=== PATIENT | male | born 1960 | race Caucasian/White ===

== ENCOUNTER 2017-11-25 16:54 | Observation (INO) | payer BC ==
[~2017-11-25 16:54] MED LIST: ASPI81TA45 PO; BENA25MI PO; CENTTAB9 PO; GLUC1000 PO; LANTUS2P SC; LOPE2TAB3 PO; METO25CR PO; NITR0.4S SL; NOVOLOGP2 SQ; NYST100024 TOP; RIVA20 PO; [UNRECOGNIZED DRUG - SUPPLY] TOP
[2017-11-25 17:40] VITALS: BP 105/72; PULSE 105; RESP 20; TEMP 98.2; O2SAT 97
[2017-11-25 18:17] VITALS: BP_SYST 106; BP_SYST 135; BP_SYST 139; BP_DIAS 68; BP_DIAS 78; BP_DIAS 86; RESP 18
[2017-11-25 18:49] LABS: AUTOMATED NEUTROPHIL # 8.4 TH/MM3 (1.8-7.7); BASOPHIL # 0.1 TH/MM3 (0-0.2); BASOPHIL % 0.6 % (0.0-2.0); EOSINOPHIL # 0.7 TH/MM3 (0-0.4); EOSINOPHIL % 6.1 % (0.0-4.0); HEMATOCRIT 38.7 % (39.0-51.0); HEMOGLOBIN 14.1 GM/DL (13.0-17.0); LYMPH % 16.9 % (9.0-44.0); MEAN CELL VOLUME 90.2 FL (80.0-100.0); MEAN CORPUSCULAR HEMOGLOBIN 32.9 PG (27.0-34.0); MONO % 6.9 % (0.0-8.0); MONOCYTE # 0.8 TH/MM3 (0-0.9); NEUT % 69.5 % (16.0-70.0); PLATELET COUNT 169 TH/MM3 (150-450); RED CELL DISTRIBUTION WIDTH 12.4 % (11.6-17.2); WHITE BLOOD COUNT 12.1 TH/MM3 (4.0-11.0)
[2017-11-25 18:50] LABS: MEAN CORPUSCULAR HGB CONC 36.5 % (32.0-36.0)
[2017-11-25] MEDS ORDERED: ATOR40TA16 PO (19:09)
[2017-11-25] MEDS ORDERED: NOVOLOGP2 SQ (19:09)
[2017-11-25] MEDS ORDERED: INSU1.2I SQ (19:09)
[2017-11-25] MEDS ORDERED: METO50TA PO (19:09)
[2017-11-25] MEDS ORDERED: LISI40TA PO (19:09)
[2017-11-25] MEDS ORDERED: XARE20TA PO (19:09)
[2017-11-25] MEDS ORDERED: ESOM0.1C PO (19:09)
--- NOTE | 2017-11-25 19:10 | PD ---
HPI Chief Complaint: Syncope/Near-Syncope Time Seen by Provider: 18:51 Travel History International Travel<30 days: No Contact w/Intl Traveler<30days: No History of Present Illness HPI 56-year-old male brought in by EMS status post syncopal episode at his home earlier this afternoon. This was witnessed by his . Patient has cardiac history consisting of CAD with triple bypass in 2014 in [place]. Patient has history of hypertension and type 2 diabetes on insulin which he does not treat appropriately. Patient states he never checks his sugar he just takes with his doctor tells him. Patient states he doubled up on his metoprolol and lisinopril dose this morning as he felt his blood pressure was too high. The patient reports history of feeling pressure behind his eyes and in the anterior left neck over the past 2 weeks especially when he is exerting himself. The patient denies specific chest pain or shortness of breath. Patient states he was getting up talking to his , and asking if she had any patent potato's, when he passed out. His states he went to his knees and then onto the floor. She states he was passed out for approximately 1 minute. She denies seeing any seizure activity. He did not hit his head. He was breathing normally during this time. His got him up and checked his blood pressure and found to be 90/50. She dialed 911 at that time. Patient currently feels alert and oriented and without any symptoms at all at this time. He has no known drug allergies. PFSH Past Medical History Atrial Fibrillation: Yes Cardiovascular Problems: Yes High Cholesterol: Yes Diabetes: Yes Patient Takes Glucophage: No Diminished Hearing: Yes (DEAF L EAR) GERD: Yes Hypertension: Yes Influenza Vaccination: Yes Past Surgical History Appendectomy: Yes Coronary Artery Bypass Graft: Yes (X4) Ear Surgery: Yes (L EAR GRAFT ) Tonsillectomy: Yes (AND ADENOIDS) Social History Alcohol Use: Yes (1 P[place] 5X/WEEK) Tobacco Use: Yes (1/2 PACK WHEN DRINKING) Substance Use: Yes (MARIJUANA) Allergies-Medications (Allergen,Severity, Reaction): Coded Allergies: No Known Allergies (Unverified , 04/23/15) Reported Meds & Prescriptions Reported Meds & Active Scripts Active Reported Samuel Sam Pen Inj (Insulin Glargine) 300 Unit/Ml Pen 70 Units SQ HS Novolog Inj (Insulin Aspart) 1,000 Unit/10 Ml Vial 17 Units SQ TID Xarelto (Rivaroxaban) 20 Mg Tab 20 Mg PO DAILY Esomeprazole DR 20 Mg Capdr 20 Mg PO DAILY Lisinopril 40 Mg Tab 40 Mg PO DAILY Atorvastatin (Atorvastatin Calcium) 40 Mg Tab 40 Mg PO HS Metoprolol Tartrate 50 Mg Tab 50 Mg PO DAILY Review of Systems Except as stated in HPI: all other systems reviewed are Neg General / Constitutional: No: Fever Eyes: No: Visual changes HENT: No: Headaches Cardiovascular: No: Chest Pain or Discomfort Respiratory: No: Shortness of Breath Gastrointestinal: No: Abdominal Pain Genitourinary: No: Dysuria Musculoskeletal: No: Pain Skin: No Rash Neurologic: Positive: Syncope (see history present illness), No: Weakness Psychiatric: No: Depression Endocrine: No: Polydipsia Hematologic/Lymphatic: No: Easy Bruising Physical Exam Narrative GENERAL: Patient appears in no obvious distress. He is talkative and animated. SKIN: Warm and dry. Normal color. Normal turgor. No sign of trauma. HEAD: Atraumatic. Normocephalic. EYES: Pupils equal and round. No scleral icterus. No injection or drainage. ENT: No nasal bleeding or discharge. Mucous membranes pink and moist. Thanks is clear. Airway is patent. NECK: Trachea midline. No JVD. Supple nontender. CARDIOVASCULAR: Regular rate and rhythm. No murmurs gallops or rubs. RESPIRATORY: No accessory muscle use. Clear to auscultation. Breath sounds equal bilaterally. GASTROINTESTINAL: Abdomen soft, non-tender, nondistended. Hepatic and splenic margins not palpable. MUSCULOSKELETAL: Extremities without clubbing, cyanosis, or edema. No obvious deformities. NEUROLOGICAL: Awake and alert. No obvious cranial nerve deficits. Motor grossly within normal limits. Five out of 5 muscle strength in the arms and legs. Normal speech. PSYCHIATRIC: Appropriate mood and affect; insight and judgment normal. Data Data Last Documented VS Vital Signs Date Time Temp Pulse Resp B/P (MAP) Pulse Ox O2 Delivery O2 Flow Rate FiO2 11/25/17 19:24 104 18 121/65 (83) 97 Room Air 11/25/17 17:40 98.2 Orders Orders Electrocardiogram (11/25/17 17:27) Complete Blood Count With Diff (11/25/17 17:27) Basic Metabolic Panel (Bmp) (11/25/17 17:27) Ckmb (Isoenzyme) Profile (11/25/17 17:27) Troponin I (11/25/17 17:27) Iv Access Insert/Monitor (11/25/17 17:27) Ecg Monitoring (11/25/17 17:27) Magnesium (Mg) (11/25/17 19:11) Act Partial Throm Time (Ptt) (11/25/17 19:11) Prothrombin Time / Inr (Pt) (11/25/17 19:11) Urinalysis - C+S If Indicated (11/25/17 19:11) Blood Glucose (11/25/17 19:11) Oximetry (11/25/17 19:11) Ondansetron Inj (Zofran Inj) (11/25/17 19:15) Sodium Chloride 0.9% Flush (Ns Flush) (11/25/17 19:15) Sodium Chlor 0.9% 1000 Ml Inj (Ns 1000 M (11/25/17 19:11) Orthostatic Vital Signs (11/25/17 19:11) CKMB (11/25/17 18:30) CKMB% (11/25/17 18:30) Insulin Human Regular Inj (Novolin R Inj (11/25/17 20:00) Chest, Single Ap (11/25/17 20:16) Electrocardiogram (11/25/17 19:40) Admit Order (Ed Use Only) (11/25/17 21:16) Labs Laboratory Tests Test 11/25/17 18:30 11/25/17 19:10 White Blood Count 12.1 TH/MM3 Red Blood Count 4.30 MIL/MM3 Hemoglobin 14.1 GM/DL Hematocrit 38.7 % Mean Corpuscular Volume 90.2 FL Mean Corpuscular Hemoglobin 32.9 PG Mean Corpuscular Hemoglobin Concent 36.5 % Red Cell Distribution Width 12.4 % Platelet Count 169 TH/MM3 Mean Platelet Volume 10.0 FL Neutrophils (%) (Auto) 69.5 % Lymphocytes (%) (Auto) 16.9 % Monocytes (%) (Auto) 6.9 % Eosinophils (%) (Auto) 6.1 % Basophils (%) (Auto) 0.6 % Neutrophils # (Auto) 8.4 TH/MM3 Lymphocytes # (Auto) 2.0 TH/MM3 Monocytes # (Auto) 0.8 TH/MM3 Eosinophils # (Auto) 0.7 TH/MM3 Basophils # (Auto) 0.1 TH/MM3 CBC Comment AUTO DIFF Differential Comment AUTO DIFF CONFIRMED Blood Urea Nitrogen 45 MG/DL Creatinine 1.99 MG/DL Random Glucose 362 MG/DL Calcium Level 9.1 MG/DL Sodium Level 131 MEQ/L Potassium Level 4.5 MEQ/L Chloride Level 100 MEQ/L Carbon Dioxide Level 18.5 MEQ/L Anion Gap 13 MEQ/L Estimat Glomerular Filtration Rate 35 ML/MIN Magnesium Level 1.9 MG/DL Total Creatine Kinase 103 U/L Creatine Kinase MB 0.9 NG/ML Troponin I LESS THAN 0.02 NG/ML Prothrombin Time 10.8 SEC Prothromb Time International Ratio 1.1 RATIO Activated Partial Thromboplast Time 33.1 SEC Urine Color LIGHT-YELLOW Urine Turbidity CLEAR Urine pH 5.0 Urine Specific [place] 1.010 Urine Protein NEG mg/dL Urine Glucose (UA) 1000 mg/dL Urine Ketones NEG mg/dL Urine Occult Blood NEG Urine Nitrite NEG Urine Bilirubin NEG Urine Urobilinogen LESS THAN 2.0 MG/DL Urine Leukocyte Esterase NEG Urine RBC LESS THAN 1 /hpf Urine WBC LESS THAN 1 /hpf Urine Mucus FEW /lpf Microscopic Urinalysis Comment CULT NOT INDICATED MDM Medical Decision Making Medical Screen Exam Complete: Yes Emergency Medical Condition: Yes Medical Record Reviewed: Yes Differential Diagnosis Syncopal episode. Cardiac syndrome. Hyperglycemia. Hypoglycemia. Electrolyte imbalance. Dehydration. Narrative Course Patient appears medically stable at time of exam. Bedside blood sugar is EKG shows normal sinus rhythm without significant ST-T changes noted. Chest x-ray is ordered. CBC shows slight leukocytosis of 12.1. First troponin is less than 0.02. Rest of the chemistry shows a sodium 131, Lanoxin is 18.5. BUN is 45 with a creatinine of 1.99 with an estimated GFR of 35. Glucose is 362. Urinalysis is unremarkable except for urine glucose of thousand. Chest x-ray shows left-sided trace atelectasis versus scar tissue. Patient certainly warrants observation as I do not have a specific cause of his syncopal event, and cannot rule out cardiac event versus low blood sugar, versus other etiology. Call placed to the hospitalist for admission. Diagnosis Primary Impression: Syncope Qualified Codes: R55 - Syncope and collapse Additional Impressions: Type 2 diabetes mellitus Qualified Codes: E11.65 - Type 2 diabetes mellitus with hyperglycemia; Z79.4 - [facility] (current) use of insulin Elevated serum creatinine Hyponatremia Admitting Information Admitting Physician Requests: Observation Condition: Stable Angel Sales Nov 25, 2017 19:10
[2017-11-25] MEDS ORDERED: SODIUM CHLOR 0.9% 1000 ML INJ 1,000 ML IV ONE (19:11)
[2017-11-25] MEDS ORDERED: ONDANSETRON HCL 4 MG/2 ML VIAL IVP ONE (19:15)
[2017-11-25] MEDS ORDERED: SODIUM CHLORIDE 0.9% FLUSH 10 ML FLUSH IVF PRN (19:15)
[2017-11-25 19:24] VITALS: BP 121/65; PULSE 104; RESP 18; O2SAT 97
[2017-11-25 19:29] LABS: TROPONIN I LESS THAN 0.02 NG/ML (0.02-0.05)
[2017-11-25 19:32] LABS: BILIRUBIN, URINE NEG (NEG); BLOOD, URINE NEG (NEG); GLUCOSE,URINE 1000 mg/dL (NEG); KETONE, URINE NEG (NEG); MUCUS URINE FEW /lpf (OCC); NITRITE,URINE NEG (NEG); URINE COLOR LIGHT-YELLOW (YELLW/STRAW); URINE LEUKOCYTE ESTERASE NEG (NEG)
[2017-11-25 19:39] LABS: INTERNATIONAL NORMALIZED RATIO 1.1 RATIO; PROTHROMBIN TIME - PATIENT 10.8 SEC (9.8-11.6)
[2017-11-25 19:42] LABS: BICARBONATE 18.5 MEQ/L (21.0-32.0); BLOOD UREA NITROGEN 45 MG/DL (7-18); CALCIUM 9.1 MG/DL (8.5-10.1); CHLORIDE 100 MEQ/L (98-107); CREATININE 1.99 MG/DL (0.60-1.30); GLOMERULAR FILTRATION RATE 35 ML/MIN (>89); SODIUM (NA) 131 MEQ/L (136-145)
[2017-11-25 19:47] LABS: GLUCOSE,RANDOM 362 MG/DL (74-106)
--- NOTE | 2017-11-25 19:47 | PD ---
Physical Exam Narrative General: The patient is a well-developed well-nourished male in no acute disease. Head and Neck exam: Head is normocephalic atraumatic. Eyes: EOMI, pupils are equal round and reactive to light. Nose: Midline septum with pink mucous membranes Mouth: Dentition unremarkable. Moist mucus membranes. Posterior oropharynx is not erythematous. No tonsillar hypertrophy. Uvula midline. Airway patent. Neck: No palpable lymphadenopathy. No nuchal rigidity. No thyromegaly. Cardiovascular: Sinus tachycardia in the low 100s without murmurs, gallops, or rubs. No pulse deficit to the extremities on simultaneous auscultation and palpation of his radial artery. Lungs: Clear to auscultation bilaterally. No wheezes, rhonchi, or rales. Abdomen: Soft, without tenderness to palpation in all 4 quadrants of the abdomen. No guarding, rebound, or rigidity. Normal bowel sounds are audible. No tenderness on palpation of McBurney's point. Extremities: No clubbing, cyanosis, or edema. 2+ pulses in all 4 extremities. No calf tenderness on palpation. Back: No costovertebral angle tenderness to palpation. Neurologic Exam: Grossly nonfocal. Skin Exam: No rash noted. Intact skin that is warm and dry. Data Data Last Documented VS Vital Signs Date Time Temp Pulse Resp B/P (MAP) Pulse Ox O2 Delivery O2 Flow Rate FiO2 11/25/17 19:24 104 18 121/65 (83) 97 Room Air 11/25/17 17:40 98.2 Orders Orders Electrocardiogram (11/25/17 17:27) Complete Blood Count With Diff (11/25/17 17:27) Basic Metabolic Panel (Bmp) (11/25/17 17:27) Ckmb (Isoenzyme) Profile (11/25/17 17:27) Troponin I (11/25/17 17:27) Iv Access Insert/Monitor (11/25/17 17:27) Ecg Monitoring (11/25/17 17:27) Magnesium (Mg) (11/25/17 19:11) Act Partial Throm Time (Ptt) (11/25/17 19:11) Prothrombin Time / Inr (Pt) (11/25/17 19:11) Urinalysis - C+S If Indicated (11/25/17 19:11) Blood Glucose (11/25/17 19:11) Oximetry (11/25/17 19:11) Ondansetron Inj (Zofran Inj) (11/25/17 19:15) Sodium Chloride 0.9% Flush (Ns Flush) (11/25/17 19:15) Sodium Chlor 0.9% 1000 Ml Inj (Ns 1000 M (11/25/17 19:11) Orthostatic Vital Signs (11/25/17 19:11) CKMB (11/25/17 18:30) CKMB% (11/25/17 18:30) Insulin Human Regular Inj (Novolin R Inj (11/25/17 20:00) Chest, Single Ap (11/25/17 20:16) Electrocardiogram (11/25/17 19:40) Admit Order (Ed Use Only) (11/25/17 21:16) Labs Laboratory Tests Test 11/25/17 18:30 11/25/17 19:10 White Blood Count 12.1 TH/MM3 Red Blood Count 4.30 MIL/MM3 Hemoglobin 14.1 GM/DL Hematocrit 38.7 % Mean Corpuscular Volume 90.2 FL Mean Corpuscular Hemoglobin 32.9 PG Mean Corpuscular Hemoglobin Concent 36.5 % Red Cell Distribution Width 12.4 % Platelet Count 169 TH/MM3 Mean Platelet Volume 10.0 FL Neutrophils (%) (Auto) 69.5 % Lymphocytes (%) (Auto) 16.9 % Monocytes (%) (Auto) 6.9 % Eosinophils (%) (Auto) 6.1 % Basophils (%) (Auto) 0.6 % Neutrophils # (Auto) 8.4 TH/MM3 Lymphocytes # (Auto) 2.0 TH/MM3 Monocytes # (Auto) 0.8 TH/MM3 Eosinophils # (Auto) 0.7 TH/MM3 Basophils # (Auto) 0.1 TH/MM3 CBC Comment AUTO DIFF Differential Comment AUTO DIFF CONFIRMED Blood Urea Nitrogen 45 MG/DL Creatinine 1.99 MG/DL Random Glucose 362 MG/DL Calcium Level 9.1 MG/DL Sodium Level 131 MEQ/L Potassium Level 4.5 MEQ/L Chloride Level 100 MEQ/L Carbon Dioxide Level 18.5 MEQ/L Anion Gap 13 MEQ/L Estimat Glomerular Filtration Rate 35 ML/MIN Magnesium Level 1.9 MG/DL Total Creatine Kinase 103 U/L Creatine Kinase MB 0.9 NG/ML Troponin I LESS THAN 0.02 NG/ML Prothrombin Time 10.8 SEC Prothromb Time International Ratio 1.1 RATIO Activated Partial Thromboplast Time 33.1 SEC Urine Color LIGHT-YELLOW Urine Turbidity CLEAR Urine pH 5.0 Urine Specific [place] 1.010 Urine Protein NEG mg/dL Urine Glucose (UA) 1000 mg/dL Urine Ketones NEG mg/dL Urine Occult Blood NEG Urine Nitrite NEG Urine Bilirubin NEG Urine Urobilinogen LESS THAN 2.0 MG/DL Urine Leukocyte Esterase NEG Urine RBC LESS THAN 1 /hpf Urine WBC LESS THAN 1 /hpf Urine Mucus FEW /lpf Microscopic Urinalysis Comment CULT NOT INDICATED MDM Medical Record Reviewed: Yes Supervised Visit with TAMMIE: Yes Interpretation(s) Last Impressions Chest X-Ray 11/25/172015 Signed Impressions: Service Date/Time: Saturday, November 25, 2017 20:31 - CONCLUSION: Trace left base atelectasis and/or scarring. Otherwise negative. Khris Longoria MD Narrative Course I, Dr. Plaza, have reviewed the advance practice practitioner's documentation and am in agreement, met with the patient face to face, made the diagnosis, and the medical decision making was done by me. The patient was initially evaluated by Angel. Please see their complete history and physical. *My assessment and Findings: The patient presents with reported history of syncopal event that occurred earlier today. The patient reports that he has had lightheaded sensation for the last few weeks. The patient has a prior history of hypertension, tobacco use, coronary artery disease with quadruple bypass 3 years ago. He cannot recall when he last had a stress test done. He denies having a primary care physician. He reports that his occup therapist is Dr. Villalpando in [place]. During the course of the patients emergency department visit, the patients history, examination, and differential diagnosis were reviewed with the patient. The patient was placed on a rv service technician with oximetry and frequent blood pressure monitoring. The patient had IV access obtained and blood work sent for analysis. The patient had an EKG done on arrival that shows a sinus tachycardia rate of 100, nonspecific T-wave abnormalities, QRS duration is 101 ms, QTC [address] segment elevation is noted. The patient was initially provided normal saline 1 L IV fluid bolus, Zofran 4 mg IV. The patients laboratory studies were reviewed and remarkable for a white count of 12.1, hemoglobin 14.1, platelets 169 with 6.1 eosinophils, BMP is remarkable for a sodium of 131, CO2 18.5, BUN 45, creatinine 1.99, glucose 362 cardiac enzymes within normal limits, PT 10.8, PTT 33.1, urinalysis unremarkable, chest x-ray shows trace left base atelectasis and or scarring, otherwise unremarkable. The patients results were discussed with the patient, including the plan of care. I explained that further testing and/ or monitoring is indicated based on the patients history, examination, and/ or laboratory findings. Therefore, I recommended admission for additional evaluation. The patient expressed understanding and was agreeable with this plan. The patient was admitted to the hospital in stable condition and [facility] Diagnosis Primary Impression: Syncope Qualified Codes: R55 - Syncope and collapse Admitting Information Admitting Physician Requests: Observation Scripts Lisinopril (Lisinopril) 20 Mg Tab 20 MG PO DAILY, #30 TAB 0 Refills Prov: Maximino Wilson DO 11/26/17 Metoprolol Tartrate (Metoprolol Tartrate) 25 Mg Tab 25 MG PO BID for Afib, #60 TAB 0 Refills Prov: Maximino Wilson DO 11/26/17 Thiamine HCl (Gnp Vitamin B-1) 100 Mg Tab 100 MG PO DAILY for Vitamins, #30 TAB Prov: Maximino Wilson DO 11/26/17 Folic Acid (Folic Acid) 1 Mg Tablet 1 MG PO DAILY for Vitamins, #30 TAB Prov: Maximino Wilson DO 11/26/17 Condition: Stable Diana Plaza MD Nov 25, 2017 19:47
[2017-11-25] MEDS ORDERED: INSULIN HUMAN REGULAR 1,000 UNITS/10 ML VIAL IV PUSH ONE (20:00)
--- NOTE | 2017-11-25 20:45 | RADRPT ---
EXAM DATE/TIME: 11/25/2017 20:31 [facility] COMPARISON: No previous studies available for comparison. INDICATIONS : Syncope MEDICAL HISTORY : Cardiovascular disease. Hypertension SURGICAL HISTORY : CABG. ENCOUNTER: Initial ACUITY: 2 weeks PAIN SCORE: 0/10 LOCATION: chest FINDINGS: Minimal left base atelectasis versus scarring. Lungs are otherwise clear. No pleural effusion seen. N o pneumothorax. Normal heart size. Patient has had previous median sternotomy and CABG. CONCLUSION: Trace left base atelectasis and/or scarring. Otherwise negative. Khris Longoria MD on November 25, 2017 at 20:41 Board Certified Radiologist. This report was verified electronically.
[2017-11-25] MEDS ORDERED: ACETAMINOPHEN/HYDROcodone 325 MG/5 MG TAB PO PRN (21:30)
[2017-11-25] MEDS ORDERED: SENNOSIDES 8.6 MG TAB PO PRN (21:30)
[2017-11-25] MEDS ORDERED: SODIUM CHLORIDE 0.9% FLUSH 10 ML FLUSH IV FLUSH PRN (21:30)
[2017-11-25] MEDS ORDERED: ONDANSETRON HCL 4 MG/2 ML VIAL IVP PRN (21:30)
[2017-11-25] MEDS ORDERED: BISACODYL 10 MG SUPP RECTAL PRN (21:30)
[2017-11-25] MEDS ORDERED: ACETAMINOPHEN 325 MG TAB PO PRN (21:30)
[2017-11-25] MEDS ORDERED: LACTULOSE SYRUP 20 GM/30 ML CUP PO PRN (21:30)
[2017-11-25] MEDS ORDERED: ACETAMINOPHEN/HYDROcodone 325 MG/10 MG TAB PO PRN (21:30)
[2017-11-25] MEDS ORDERED: MAGNESIUM HYDROXIDE SUSP 30 ML CUP PO PRN (21:30)
--- NOTE | 2017-11-25 21:37 | HHI.HP ---
[facility] Primary Care Physician No Primary Care Physician Admission Diagnosis Syncope Diagnoses: (1) Syncope Diagnosis: Principal (2) Renal insufficiency Diagnosis: Principal (3) HTN (hypertension) Diagnosis: Principal (4) A-fib Diagnosis: Principal (5) Leukocytosis Diagnosis: Principal (6) DM (diabetes mellitus) Diagnosis: Principal (7) Tobacco abuse Diagnosis: Principal Travel History International Travel<30 Days: No Contact w/Intl Traveler <30 Da: No History of Present Illness This is a 56-year-old male with a PMH of HTN, Hyperlipidemia, A. fib on Xarelto , DM and Tobacco Abuse who was brought to the ER by EMS after syncopal event. Per patient he had sudden syncopal event at home, witnessed by . No head trauma. States he took a double dose of Metoprolol and Lisinopril earlier today bc he felt his BP was high. took BP after syncopal event and noted to be 90/50. No recent fever, chills, cough or chest pain. On arrival, BP 105/ 72, HR 105, O2 sat 97% on RA, Afebrile. WBC 12.1. BUN 45, creatinine 1.99, no previous labs for comparison. BS 362. Troponin negative. INR 1.1. CXR trace left base atelectasis, otherwise negative. Review of Systems Except as stated in HPI: all other systems reviewed are Neg ROS: 14 point review of systems otherwise negative. Past Family Social History Past Medical History PMH: HTN, Hyperlipidemia, A. fib on Xarelto, DM and Tobacco Abuse Past Surgical History PAST SURGICAL HISTORY: Tonsillectomy, Appendectomy, CABG Allergies: Coded Allergies: No Known Allergies (Unverified Allergy, Unknown, 11/25/17) Family History PAST FAMILY HISTORY: Reviewed, positive for CAD and DM. Social History PAST SOCIAL HISTORY: Drinks 1 pint of vodka 5 times a week. Smokes 1/2ppd. Positive for Marijuana. Physical Exam Vital Signs Vital Signs Date Time Temp Pulse Resp B/P (MAP) Pulse Ox O2 Delivery O2 Flow Rate FiO2 11/25/17 19:24 104 18 121/65 (83) 97 Room Air 11/25/17 18:17 106 18 135/86 (102) 106 18 106/68 (81) 116 18 139/78 (98) 11/25/17 17:40 98.2 105 20 105/72 (83) 97 Physical Exam PE: GENERAL: Pleasant middle-aged white male in no acute distress. at bedside. HEENT: PERRLA, EOMI. No scleral icterus or conjunctival pallor. No lid lag or facial droop. CARDIOVASCULAR: Regular rate and rhythm. No obvious murmurs to auscultation. No chest tenderness to palpation. RESPIRATORY: No obvious rhonchi or wheezing. Clear to auscultation. Breath sounds equal bilaterally. GASTROINTESTINAL: Abdomen soft, non-tender, nondistended. BS normal. MUSCULOSKELETAL: Extremities without clubbing, cyanosis, or edema. No obvious deformities. NEUROLOGICAL: Awake, alert and oriented x4. No focal neurologic deficits. Moving both upper and lower extremities spontaneously. Laboratory Laboratory Tests Test 11/25/17 18:30 11/25/17 19:10 White Blood Count 12.1 Red Blood Count 4.30 Hemoglobin 14.1 Hematocrit 38.7 Mean Corpuscular Volume 90.2 Mean Corpuscular Hemoglobin 32.9 Mean Corpuscular Hemoglobin Concent 36.5 Red Cell Distribution Width 12.4 Platelet Count 169 Mean Platelet Volume 10.0 Neutrophils (%) (Auto) 69.5 Lymphocytes (%) (Auto) 16.9 Monocytes (%) (Auto) 6.9 Eosinophils (%) (Auto) 6.1 Basophils (%) (Auto) 0.6 Neutrophils # (Auto) 8.4 Lymphocytes # (Auto) 2.0 Monocytes # (Auto) 0.8 Eosinophils # (Auto) 0.7 Basophils # (Auto) 0.1 CBC Comment AUTO DIFF Differential Comment AUTO DIFF CONFIRMED Blood Urea Nitrogen 45 Creatinine 1.99 Random Glucose 362 Calcium Level 9.1 Sodium Level 131 Potassium Level 4.5 Chloride Level 100 Carbon Dioxide Level 18.5 Anion Gap 13 Estimat Glomerular Filtration Rate 35 Magnesium Level 1.9 Total Creatine Kinase 103 Creatine Kinase MB 0.9 Troponin I LESS THAN 0.02 Prothrombin Time 10.8 Prothromb Time International Ratio 1.1 Activated Partial Thromboplast Time 33.1 Urine Color LIGHT-YELLOW Urine Turbidity CLEAR Urine pH 5.0 Urine Specific Parlin 1.010 Urine Protein NEG Urine Glucose (UA) 1000 Urine Ketones NEG Urine Occult Blood NEG Urine Nitrite NEG Urine Bilirubin NEG Urine Urobilinogen LESS THAN 2.0 Urine Leukocyte Esterase NEG Urine RBC LESS THAN 1 Urine WBC LESS THAN 1 Urine Mucus FEW Microscopic Urinalysis Comment CULT NOT INDICATED Result Diagram: 11/25/17182911/25/171829 Caprini VTE Risk Assessment Caprini VTE Risk Assessment: No/Low Risk (score <= 1) Caprini Risk Assessment Model Point Value = 1 Point Value = 2 Point Value = 3 Point Value = 5 Age 41-60 Minor surgery BMI > 25 kg/m2 Swollen legs Varicose veins or History of unexplained or recurrent spontaneous Oral contraceptives or hormone replacement Sepsis (< 1 month) Serious lung disease, including pneumonia (< 1 month) Abnormal pulmonary function Acute myocardial infarction Congestive heart failure (< 1 month) History of inflammatory bowel disease Medical patient at bed rest Age 61-74 Arthroscopic surgery Major open surgery (> 45 min) Laparoscopic surgery (> 45 min) Malignancy Confined to bed (> 72 hours) Immobilizing plaster cast Central venous access Age >= 75 History of VTE Family history of VTE Factor V Leiden Prothrombin [id number] Lupus anticoagulant Anticardiolipin antibodies Elevated serum homocysteine Heparin-induced thrombocytopenia Other congenital or acquired thrombophilia Stroke (< 1 month) Elective arthroplasty Hip, pelvis, or leg fracture Acute spinal cord injury (< 1 month) Prophylaxis Regimen Total Risk Factor Score Risk Level Prophylaxis Regimen 0-1 Low Early ambulation 2 Moderate Order ONE of the following: *Sequential Compression Device (SCD) *Heparin 5000 units SQ BID 3-4 Higher Order ONE of the following medications: *Heparin 5000 units SQ TID *Enoxaparin/Lovenox 40 mg SQ daily (WT < 150 kg, CrCl > 30 mL/min) *Enoxaparin/Lovenox 30 mg SQ daily (WT < 150 kg, CrCl > 10-29 mL/min) *Enoxaparin/Lovenox 30 mg SQ BID (WT < 150 kg, CrCl > 30 mL/min) AND/OR *Sequential Compression Device (SCD) 5 or more Highest Order ONE of the following medications: *Heparin 5000 units SQ TID (Preferred with Epidurals) *Enoxaparin/Lovenox 40 mg SQ daily (WT < 150 kg, CrCl > 30 mL/min) *Enoxaparin/Lovenox 30 mg SQ daily (WT < 150 kg, CrCl > 10-29 mL/min) *Enoxaparin/Lovenox 30 mg SQ BID (WT < 150 kg, CrCl > 30 mL/min) AND *Sequential Compression Device (SCD) Assessment and Plan Problem List: (1) Syncope ICD Code: R55 - Syncope and collapse Status: Acute (2) Renal insufficiency ICD Code: N28.9 - Disorder of kidney and ureter, unspecified (3) Leukocytosis ICD Code: D72.829 - Elevated white blood cell count, unspecified (4) HTN (hypertension) ICD Code: I10 - Essential (primary) hypertension (5) A-fib ICD Code: I48.91 - Unspecified atrial fibrillation (6) DM (diabetes mellitus) ICD Code: E11.9 - Type 2 diabetes mellitus without complications (7) Tobacco abuse ICD Code: Z72.0 - Tobacco abuse Status: Acute Assessment and Plan A/P: 1. Syncope: acute syncopal event after standing, likely vasovagal, compounded by antihypertensive medications as took double dose of normal regimen. Admit for Observation, place on telemetry. Initial trop negative, check serial cardiac enzymes to eval for possible underlying ischemia. Check Echo to eval for valvular abnormalities/cardiomyopathy. 2. Renal Insufficiency: Creatinine 1.99, no previous labs for comparison. U/ a negative. Start IVF, hold Lisinopril in light of renal insufficiency. Repeat labs in am. 3. Leukocytosis: WBC 12, afebrile. Likely secondary to fall/syncope, no obvious infection. U/a negative, CXR w/ no acute findings, images reviewed by me. Repeat labs in am for trend. 4. HTN: On Metoprolol/Lisinopril at home, took double dose today for elevated BP at home, BP low 100's, will hold antihypertensives for now, monitor BP closely. 5. DM: Sliding scale w/ Accu-Cheks. Resume home Insulin. 6. Tobacco Abuse: Pt counselled. Ativan prn if needed. 7. A-fib: Chronic. Resume home Xarelto. Hold Metoprolol secondary to above, resume when BP stabilized. 8. DVT Prophylaxis: Xarelto 9. Social work for DC planning as needed. 10. Case discussed at length with ER physician, lab/records/imaging reviewed by me. Problem Qualifiers (1) Syncope: Qualified Codes: R55 - Syncope and collapse Mehnaz Pradhan MD Nov 25, 2017 21:37
[2017-11-25 21:48] VITALS: BP 128/76
[2017-11-25] MEDS: SODIUM CHLOR 0.9% 1000 ML INJ 1,000 ML IV SCH (21:48)
[2017-11-26 00:05] VITALS: BP 108/64; PULSE 101; RESP 20; TEMP 97.3; O2SAT 96
[2017-11-26] MEDS ORDERED: LORazepam 2 MG TAB PO PRN (00:15)
[2017-11-26] MEDS ORDERED: FLUMAZENIL 0.5 MG/5 ML VIAL IV PUSH PRN (00:15)
[2017-11-26] MEDS ORDERED: LORazepam 2 MG/ML VIAL IV PUSH PRN ×4 (00:15)
[2017-11-26] MEDS ORDERED: LORazepam 1 MG TAB PO PRN (00:15)
[2017-11-26] MEDS ORDERED: HALOPERIDOL LACTATE 5 MG/ML AMP IM PRN (00:15)
[2017-11-26 02:44] LABS: AUTOMATED NEUTROPHIL # 4.4 TH/MM3 (1.8-7.7); BASOPHIL # 0.1 TH/MM3 (0-0.2); BASOPHIL % 1.1 % (0.0-2.0); EOSINOPHIL # 0.6 TH/MM3 (0-0.4); EOSINOPHIL % 7.4 % (0.0-4.0); HEMATOCRIT 35.1 % (39.0-51.0); HEMOGLOBIN 12.2 GM/DL (13.0-17.0); LYMPHOCYTE # 1.8 TH/MM3 (1.0-4.8); MEAN CELL VOLUME 91.3 FL (80.0-100.0); MEAN CORPUSCULAR HEMOGLOBIN 31.8 PG (27.0-34.0); MEAN CORPUSCULAR HGB CONC 34.8 % (32.0-36.0); MEAN PLATELET VOLUME 10.3 FL (7.0-11.0); MONO % 11.9 % (0.0-8.0); MONOCYTE # 0.9 TH/MM3 (0-0.9); NEUT % 56.6 % (16.0-70.0); PLATELET COUNT 113 TH/MM3 (150-450); RED BLOOD COUNT 3.84 MIL/MM3 (4.50-5.90); RED CELL DISTRIBUTION WIDTH 12.4 % (11.6-17.2); WHITE BLOOD COUNT 7.8 TH/MM3 (4.0-11.0)
[2017-11-26 03:21] LABS: ALBUMIN 3.3 GM/DL (3.4-5.0); ALKALINE PHOSPHATASE 64 U/L (45-117); ALT (GPT) 46 U/L (12-78); AST (GOT) 33 U/L (15-37); BICARBONATE 24.7 MEQ/L (21.0-32.0); BLOOD UREA NITROGEN 37 MG/DL (7-18); CALCIUM 8.1 MG/DL (8.5-10.1); CHLORIDE 104 MEQ/L (98-107); CREATININE 1.69 MG/DL (0.60-1.30); GLOMERULAR FILTRATION RATE 42 ML/MIN (>89); SODIUM (NA) 136 MEQ/L (136-145); TOTAL BILIRUBIN ADULT 0.3 MG/DL (0.2-1.0); TOTAL PROTEIN 6.9 GM/DL (6.4-8.2); TROPONIN I LESS THAN 0.02 NG/ML (0.02-0.05)
[2017-11-26 03:30] LABS: GLUCOSE,RANDOM 465 MG/DL (74-106)
[2017-11-26 03:51] VITALS: BP 132/71; PULSE 90; RESP 18; TEMP 97.5; O2SAT 97
[2017-11-26 04:00] VITALS: PULSE 90
[2017-11-26] MEDS ORDERED: DEXTROSE 50% IN WATER 50 ML VIAL(D50) IV PUSH PRN (04:00)
[2017-11-26] MEDS ORDERED: GLUCAGON 1 MG/ML VIAL OTHER PRN (04:00)
[2017-11-26] MEDS ORDERED: INSULIN ASPART 1,000 UNITS/10 ML VIAL SQ ONE (04:15)
[2017-11-26] MEDS: SODIUM CHLOR 0.9% 1000 ML INJ 1,000 ML IV SCH (06:59)
[2017-11-26] MEDS: INSULIN ASPART SUPPLEMENTAL SCALE SQ SCH ×2 (08:00→12:00)
[2017-11-26 08:31] VITALS: BP 158/89; PULSE 92; RESP 21; TEMP 98.2; O2SAT 95
[2017-11-26] MEDS ORDERED: FOLIC ACID 1 MG TAB PO SCH (09:00)
[2017-11-26] MEDS ORDERED: THIAMINE HCL 100 MG TAB PO SCH (09:00)
[2017-11-26] MEDS ORDERED: SODIUM CHLORIDE 0.9% FLUSH 10 ML FLUSH IV FLUSH SCH (09:00)
[2017-11-26] MEDS ORDERED: MULTIVITAMINS/MINERALS THERAPEUTIC TAB PO SCH (09:00)
[2017-11-26] MEDS ORDERED: DOCUSATE SODIUM 50 MG/SENNA 8.6 MG TAB PO SCH (09:00)
[2017-11-26] MEDS ORDERED: RIVAROXABAN 20 MG TAB PO SCH (09:00)
[2017-11-26] MEDS ORDERED: NEXI20CA PO (09:30)
[2017-11-26] MEDS ORDERED: PNEUMOCOCCAL POLYVALENT INJ 25 MCG/0.5 ML SYR IM ONE (10:00)
[2017-11-26 12:08] VITALS: BP 148/87; PULSE 102; RESP 21; TEMP 97.4; O2SAT 96
[2017-11-26] MEDS ORDERED: METO25TA3 PO (12:15)
[2017-11-26] MEDS ORDERED: FOLI1TAB6 PO (12:15)
[2017-11-26] MEDS ORDERED: THIA100 PO (12:15)
[2017-11-26] MEDS ORDERED: LISI-515 PO (12:15)
--- NOTE | 2017-11-26 18:50 | HHI.PR ---
Subjective Remarks Follow up for syncopal episode. Patient is currently doing well. Ambulating without any difficulties. No fever, chills. Objective Vitals Vital Signs Date Time Temp Pulse Resp B/P (MAP) Pulse Ox O2 Delivery O2 Flow Rate FiO2 11/26/17 12:08 97.4 102 21 148/87 (107) 96 11/26/17 08:31 98.2 92 21 158/89 (112) 95 11/26/17 04:00 90 11/26/17 03:51 97.5 90 18 132/71 (91) 97 11/26/17 00:05 97.3 101 20 108/64 (79) 96 11/25/17 21:48 100 16 128/76 (93) 97 11/25/17 19:24 104 18 121/65 (83) 97 Room Air I/O 11/25/17 11/25/17 11/25/17 11/26/17 11/26/17 11/26/17 07:00 15:00 23:00 07:00 15:00 23:00 Intake Total 1000 ml 480 ml Output Total 1200 ml Balance 1000 ml -720 ml Intake Oral 480 ml IV Total 1000 ml Output Urine Total 1200 ml Result Diagram: 11/26/17 0230 11/26/17 0230 Imaging Last Impressions Chest X-Ray 11/25/172015 Signed Impressions: Service Date/Time: Saturday, November 25, 2017 20:31 - CONCLUSION: Trace left base atelectasis and/or scarring. Otherwise negative. Khris Longoria MD Objective Remarks GENERAL: Alert, Oriented x 3, NAD. SKIN: Warm and dry. HEAD: Normocephalic. EYES: No scleral icterus. No injection or drainage. NECK: Supple, trachea midline. No JVD or lymphadenopathy. CARDIOVASCULAR: Regular rate and rhythm without murmurs, gallops, or rubs. RESPIRATORY: Breath sounds equal bilaterally. No accessory muscle use. GASTROINTESTINAL: Abdomen soft, non-tender, nondistended. MUSCULOSKELETAL: No cyanosis, or edema. BACK: Nontender without obvious deformity. No CVA tenderness. Procedures None. A/P Problem List: (1) Syncope ICD Code: R55 - Syncope and collapse Status: Acute (2) Renal insufficiency ICD Code: N28.9 - Disorder of kidney and ureter, unspecified (3) Leukocytosis ICD Code: D72.829 - Elevated white blood cell count, unspecified (4) HTN (hypertension) ICD Code: I10 - Essential (primary) hypertension (5) A-fib ICD Code: I48.91 - Unspecified atrial fibrillation (6) DM (diabetes mellitus) ICD Code: E11.9 - Type 2 diabetes mellitus without complications (7) Tobacco abuse ICD Code: Z72.0 - Tobacco abuse Status: Acute Assessment and Plan This is a 56-year-old male with a PMH of HTN, Hyperlipidemia, A. fib on Xarelto , DM and Tobacco Abuse who was brought to the ER by EMS after syncopal event. Patient took double dose of metoprolol (total 100mg) and lisinopril 40mg because he felt his BP was high. He was talking to his and had a sudden syncope. His BP dropped to 70s systolic. - Syncope - Likely due to metoprolol and Lisinopril. - Patient is currently asymptomatic. - Hypertension - Meds were held on admission. His BP is again going upward. Systolic 158 today. - I advised patient to cut Lisinopril to half (20mg Qday). Titration can be done with consultation with his PCP. - Also reduce Metoprolol 50mg BID to Metoprolol 25mg BID. - Diabetes mellitus - Patient's diabetes is not well controlled. It should ideally be done with coordination with his PCP or Financial Reporting Manager. - Patient's also states that patient is not very compliant with checking his BG or eating appropriately. - I encouraged patient and his to follow up with PCP and possibly grip assembler to fine tune his DM meds. - Afib - Continue Metoprolol 25mg BID, Xarelto. Follow up with School Curriculum Developer ( Dr. Villalpando). Full code. Xarelto. Discharge patient to home Condition on discharge: Improved Heart healthy, Diabetic Diet as tolerated Ad Bel activity Rx written: - Lisinopril 20mg Qday - Metoprolol 25mg BID Follow-up with primary care physician in one week and Cardiology within 1 week. Echo in one week at patient's dietetic aide's office. Problem Qualifiers (1) Syncope: Qualified Codes: R55 - Syncope and collapse (2) A-fib: Qualified Codes: I48.2 - Chronic atrial fibrillation Maximino Wilson DO Nov 26, 2017 18:50
--- NOTE | 2017-11-26 19:48 | EKG ---
Date Performed: 11/25/2017 Time Performed: 17:33:01 PTAGE: 56 years EKG: SINUS TACHYCARDIA MINIMAL VOLTAGE CRITERIA FOR LVH, CONSIDER NORMAL VARIANT ABNORMAL RHYTHM ECG NO PREVIOUS TRACING DOCTOR: Richard Tong Interpretating Date/Time 11/26/2017 19:47:53
--- NOTE | 2017-11-26 19:49 | EKG ---
Date Performed: 11/25/2017 Time Performed: 19:40:12 PTAGE: 56 years EKG: SINUS TACHYCARDIA NONSPECIFIC T-WAVE ABNORMALITY Since previous tracing, no significant hank nge noted ABNORMAL RHYTHM ECG PREVIOUS TRACING : 11/25/2017 17.33 DOCTOR: Richard Tong Interpretating Date/Time 11/26/2017 19:48:03
[2017-11-26] MEDS ORDERED: ATORVASTATIN 40 MG TAB PO SCH (21:00)
[2017-11-26] MEDS ORDERED: INSULIN GLARGINE 70 UNIT SQ SCH ×2 (21:00)
== END 2017-11-26 14:17 | disposition home or self-care (01) ==
LOC: NEPC 16:54 → NEDA 21:18 → NEPHCDU 22:14
PROVIDERS: ADMIT Hospitalist; ATTEND Hospitalist
DX: R55 Syncope and collapse (principal); T44.7X5A Adverse effect of beta-adrenoreceptor antagonists, initial encounter; I10 Essential (primary) hypertension; E78.5 Hyperlipidemia, unspecified; I25.10 Atherosclerotic heart disease of native coronary artery without angina pectoris; E11.9 Type 2 diabetes mellitus without complications; N28.9 Disorder of kidney and ureter, unspecified; D72.829 Elevated white blood cell count, unspecified; R94.31 Abnormal electrocardiogram [ECG] [EKG]; I48.91 Unspecified atrial fibrillation; Z79.01 Long term (current) use of anticoagulants; Z95.1 Presence of aortocoronary bypass graft; Z79.4 Long term (current) use of insulin; F17.200 Nicotine dependence, unspecified, uncomplicated; Z23 Encounter for immunization
CPT/HCPCS: 71045; 80048; 80053; 81001; 82550; 82552; 82948; 83735; 84484; 85025; 85610; 85730; 90471; 90732; 93005; 96361; 96372; 96374; 96375; 99285; G0378; J1815; J2405; J7030; G0009